=== PATIENT | female | born 1940 | race Caucasian/White ===

== ENCOUNTER 2020-07-12 05:51 | Inpatient (IN) | payer OTHER ==
[~2020-07-12 05:51] MED LIST: ATENOLOL PO; ATENOLOL100 MG PO; BENAZEPRIL HCL20 MG PO; CLONIDINE 0.2M0.2 MG PO; ELIQUIS2.5 MG PO; LASIX40 MG PO; MAG-OXIDE 400M400 MG PO; NORVASC5 MG PO; OXYCODONE HCL10 MG PO; OXYCODONE-ACET1 EACH PO; PERCOCET 10-321 EACH PO; POTASSIUM CHLO20 ME2 PO; PREDNISONE 20MG20 MG PO; SYNTHROID100 MCG PO; TRAZODONE 50MG50 MG PO; VOLTAREN100 GM TOP; ZOLOFT100 MG PO
[2020-07-12 06:15] LABS: BASOPHIL 0.1 % (0-2); EOSINOPHIL 0.3 % (0-7); HCT 34.1 % (37.0-47.0); HGB 10.4 g/dl (12.5-16.0); LYMPHOCYTE 4.5 % (15-48); MCH 29.6 pg (25.0-31.0); MCHC 30.5 g/dL (32.0-36.0); MCV 97.2 fL (78.0-100.0); MONOCYTE 8.1 % (0-12); MPV 10.6 fL (6.0-9.5); NEUTROPHIL 86.4 % (41-80); NRBC 0; PLT 405 K/uL (150-400); RBC 3.51 M/uL (4.20-5.40); RDW 16.6 % (11.5-14.0); WBC 15.4 K/uL (4.0-10.5)
[2020-07-12 06:37] LABS: LACTIC ACID 1.5 mmol/L (0.4-1.9)
[2020-07-12 06:45] LABS: ALBUMIN 3.6 g/dL (3.4-5.0); BILIRUBIN - TOTAL 1.1 mg/dL (0.2-1.0); BUN/CREAT RATIO (CALC) 18.3 RATIO; CREATININE 0.6 mg/dL (0.51-0.95); GLOBULIN (CALCULATION) 4.9 g/dL; POTASSIUM 3.6 mmol/L (3.5-5.1); PRO-BNP 3030 pg/mL (<450); TOTAL PROTEIN 8.5 g/dL (6.4-8.2)
[2020-07-12 07:31] LABS: CORONAVIRUS 2019 SARS-COV-2 NEGATIVE (NEGATIVE); INFLUENZA A NAA NEGATIVE (NEGATIVE)
[2020-07-12 07:53] LABS: BILIRUBIN NEGATIVE (NEGATIVE); BLOOD NEGATIVE Ery/uL (NEGATIVE); CLARITY CLEAR (CLEAR); COLOR YELLOW (YELLOW); GLUCOSE (U) NORMAL (NORMAL); LEUKOCYTES NEGATIVE Leu/uL (NEGATIVE); NITRITE NEGATIVE (NEGATIVE); PROTEIN 1+ mg/dL (NEGATIVE); SPECIFIC GRAVITY 1.015 (1.001-1.030); UROBILINOGEN 0.2 mg/dL (0.2-1.0)
[2020-07-12 08:06] LABS: SQUAMOUS EPITHELIAL CELLS RARE; URINARY RBC RARE
[2020-07-12] MEDS ORDERED: LASIX40 MG PO (10:20)
[2020-07-12] MEDS ORDERED: DULCOLAX PO (10:21)
[2020-07-12] MEDS ORDERED: SINGULAIR10 MG PO (10:21)
[2020-07-12] MEDS ORDERED: MUCINEX DM ER1 EAC1 PO (10:21)
[2020-07-12] MEDS ORDERED: BENADRYL25 M1 PO (10:21)
[2020-07-13 06:03] LABS: BASOPHIL 0.1 % (0-2); EOSINOPHIL 0 % (0-7); HCT 31.9 % (37.0-47.0); HGB 9.8 g/dl (12.5-16.0); LYMPHOCYTE 12.1 % (15-48); MCH 29.3 pg (25.0-31.0); MCHC 30.7 g/dL (32.0-36.0); MCV 95.5 fL (78.0-100.0); MONOCYTE 5.4 % (0-12); MPV 10.6 fL (6.0-9.5); NEUTROPHIL 81.8 % (41-80); NRBC 0; PLT 338 K/uL (150-400); RBC 3.34 M/uL (4.20-5.40); RDW 16.8 % (11.5-14.0); WBC 10.8 K/uL (4.0-10.5)
[2020-07-13 06:34] LABS: BUN/CREAT RATIO (CALC) 22.2 RATIO; CREATININE 0.63 mg/dL (0.51-0.95); POTASSIUM 3.4 mmol/L (3.5-5.1)
[2020-07-14 06:17] LABS: BASOPHIL 0.3 % (0-2); EOSINOPHIL 0.8 % (0-7); HCT 35.1 % (37.0-47.0); HGB 10.8 g/dl (12.5-16.0); LYMPHOCYTE 16.9 % (15-48); MCH 29.4 pg (25.0-31.0); MCHC 30.8 g/dL (32.0-36.0); MCV 95.6 fL (78.0-100.0); MONOCYTE 9.6 % (0-12); MPV 10.6 fL (6.0-9.5); NEUTROPHIL 71.9 % (41-80); NRBC 0; PLT 414 K/uL (150-400); RBC 3.67 M/uL (4.20-5.40); RDW 16.7 % (11.5-14.0); WBC 10.9 K/uL (4.0-10.5)
[2020-07-14 06:48] LABS: BUN/CREAT RATIO (CALC) 24.6 RATIO; CREATININE 0.69 mg/dL (0.51-0.95); MAGNESIUM 1.6 mg/dL (1.8-2.4); PHOSPHORUS 3.3 mg/dL (2.6-4.7); POTASSIUM 2.7 mmol/L (3.5-5.1)
--- NOTE | 2020-07-14 15:59 | NUR ---
07/14/20 Ms. Vergara lives with her daughter, Alma Vergara. She has home 02,rw, and 3in1. Ms. Vergara decline services.
[2020-07-15 05:52] LABS: BASOPHIL 0.5 % (0-2); EOSINOPHIL 2.2 % (0-7); HGB 12.3 g/dl (12.5-16.0); MCH 29.6 pg (25.0-31.0); MCHC 30.8 g/dL (32.0-36.0); MCV 96.4 fL (78.0-100.0); MONOCYTE 10.5 % (0-12); MPV 10.8 fL (6.0-9.5); NEUTROPHIL 54.3 % (41-80); NRBC 0; PLT 420 K/uL (150-400); RBC 4.15 M/uL (4.20-5.40); RDW 16.4 % (11.5-14.0); WBC 7.7 K/uL (4.0-10.5)
[2020-07-15 06:25] LABS: BUN/CREAT RATIO (CALC) 27.3 RATIO; CREATININE 0.88 mg/dL (0.51-0.95); MAGNESIUM 2.7 mg/dL (1.8-2.4); POTASSIUM 3.4 mmol/L (3.5-5.1)
--- NOTE | 2020-07-15 09:25 | NUR ---
ORTHOSTATIC VITAL SIGNS RIGHT ARM LAYING 117/75 HR 80 O2 92% RR 19 SITTING 109/66 HR 80 O2 92% RR 19 STANDING 122/60 HR 52 O2 91% RR 19
[2020-07-15] MEDS ORDERED: TORSEMIDE20 MG PO (11:59)
[2020-07-15] MEDS ORDERED: K-DUR20 MEQ PO (11:59)
--- NOTE | 2020-07-15 12:19 | NUR ---
07/15/20 Ms. Vergara requested humidified ait to her current 02. A referral was made to [facility] per order. [facility] currently provides . - Report given to CRISTOBAL Das RN.
[2020-07-16] MEDS ORDERED: OXYCODONE-ACET1 EACH PO (18:15)
[2020-09-09] MEDS ORDERED: OXYCODONE-ACET1 EACH PO (11:28)
[2020-11-10] MEDS ORDERED: OXYCODONE-ACET1 EACH PO (12:20)
[2021-01-04] MEDS ORDERED: OXYCODONE-ACET1 EACH PO (17:08)
== END 2020-07-15 13:55 | disposition home or self-care (01) | DRG 291 ==
LOC: FER 05:51 → FTCU 07:42
PROVIDERS: Emergency Medicine Emergency Medical Services; Internal Medicine; Nurse Practitioner Family; ADMIT Hospitalist
DX: I11.0 Hypertensive heart disease with heart failure (principal); J96.21 Acute and chronic respiratory failure with hypoxia; I48.20 Chronic atrial fibrillation, unspecified; I50.33 Acute on chronic diastolic (congestive) heart failure; I27.20 Pulmonary hypertension, unspecified; Z20.822 Contact with and (suspected) exposure to COVID-19; E03.9 Hypothyroidism, unspecified; J44.9 Chronic obstructive pulmonary disease, unspecified; F41.9 Anxiety disorder, unspecified; M79.7 Fibromyalgia; G89.29 Other chronic pain; K59.00 Constipation, unspecified; Z96.651 Presence of right artificial knee joint; Z79.01 Long term (current) use of anticoagulants; Z90.710 Acquired absence of both cervix and uterus; Z98.890 Other specified postprocedural states; Z98.51 Tubal ligation status
CPT/HCPCS: 36415; 36600; 71045; 80048; 80053; 81001; 82728; 82803; 83605; 83615; 83735; 83880; 84100; 84145; 84484; 85025; 85379; 86140; 87040; 87088; 93005; 94640; 94664; 97110; 97162; 97165; 97535; J1940; J2930; J3475; U0002

== ENCOUNTER 2021-06-12 11:58 | Inpatient (IN) | payer OTHER ==
[~2021-06-12] VITALS: Ht 152.4 cm; Wt 74.6 kg
[~2021-06-12 11:58] MED LIST changes: +BENADRYL25 M1 PO; +DULCOLAX PO; +K-DUR20 MEQ PO; +MUCINEX DM ER1 EAC1 PO; +SINGULAIR10 MG PO; +TORSEMIDE20 MG PO
[2021-06-12 12:52] LABS: BILIRUBIN NEGATIVE (NEGATIVE); BLOOD NEGATIVE Ery/uL (NEGATIVE); CLARITY CLEAR (CLEAR); COLOR YELLOW (YELLOW); GLUCOSE (U) NORMAL (NORMAL); LEUKOCYTES NEGATIVE Leu/uL (NEGATIVE); NITRITE NEGATIVE (NEGATIVE); PROTEIN NEGATIVE (NEGATIVE); SPECIFIC GRAVITY <=1.005 (1.001-1.030); UROBILINOGEN 0.2 mg/dL (0.2-1.0); pH 6.5 (5.0-9.0)
[2021-06-12 13:12] LABS: BASOPHIL 0.4 % (0-2); EOSINOPHIL 0.7 % (0-7); HCT 30.7 % (37.0-47.0); HGB 9.8 g/dl (12.5-16.0); LYMPHOCYTE 14.3 % (15-48); MCH 29.1 pg (25.0-31.0); MCHC 31.9 g/dL (32.0-36.0); MCV 91.1 fL (78.0-100.0); MPV 10.8 fL (6.0-9.5); NEUTROPHIL 76.7 % (41-80); NRBC 0; PLT 425 K/uL (150-400); RBC 3.37 M/uL (4.20-5.40); RDW 14.8 % (11.5-14.0); WBC 10.2 K/uL (4.0-10.5)
[2021-06-12 13:31] LABS: CORONAVIRUS 2019 SARS-COV-2 NEGATIVE (NEGATIVE); INFLUENZA A NAA NEGATIVE (NEGATIVE)
[2021-06-12 14:23] LABS: ALBUMIN 3.4 g/dL (3.4-5.0); BILIRUBIN - TOTAL 1.8 mg/dL (0.2-1.0); BUN/CREAT RATIO (CALC) 27.6 RATIO; CREATININE 0.98 mg/dL (0.51-0.95); GLOBULIN (CALCULATION) 4.9 g/dL; TOTAL PROTEIN 8.3 g/dL (6.4-8.2)
[2021-06-12] MEDS ORDERED: LASIX40 MG PO (18:11)
[2021-06-12] MEDS ORDERED: PERCOCET 10-321 EACH PO (18:12)
[2021-06-12] MEDS ORDERED: ELIQUIS2.5 MG PO (18:16)
[2021-06-12] MEDS ORDERED: DEMADEX20 MG PO (18:18)
[2021-06-12] MEDS ORDERED: BENAZEPRIL HCL20 MG PO (18:19)
[2021-06-12] MEDS ORDERED: KLOR-CON M2020 MEQ PO ×2 (18:21→18:22)
[2021-06-12] MEDS ORDERED: TRAZODONE 50MG50 MG PO (18:23)
[2021-06-13 06:02] LABS: BASOPHIL 0.3 % (0-2); EOSINOPHIL 0.8 % (0-7); HCT 30.5 % (37.0-47.0); HGB 9.5 g/dl (12.5-16.0); LYMPHOCYTE 19.3 % (15-48); MCH 28.7 pg (25.0-31.0); MCHC 31.1 g/dL (32.0-36.0); MCV 92.1 fL (78.0-100.0); MONOCYTE 8.9 % (0-12); MPV 10.7 fL (6.0-9.5); NRBC 0; PLT 418 K/uL (150-400); RBC 3.31 M/uL (4.20-5.40); RDW 14.9 % (11.5-14.0)
[2021-06-13 06:33] LABS: BUN/CREAT RATIO (CALC) 21.7 RATIO; CREATININE 0.83 mg/dL (0.51-0.95); POTASSIUM 3.4 mmol/L (3.5-5.1)
[2021-06-14 06:31] LABS: BASOPHIL 0.5 % (0-2); HCT 32.7 % (37.0-47.0); LYMPHOCYTE 26.8 % (15-48); MCH 28.7 pg (25.0-31.0); MCHC 30.6 g/dL (32.0-36.0); MCV 93.7 fL (78.0-100.0); MONOCYTE 8.5 % (0-12); MPV 10.7 fL (6.0-9.5); NEUTROPHIL 60.2 % (41-80); NRBC 0.3; PLT 467 K/uL (150-400); RBC 3.49 M/uL (4.20-5.40); RDW 15.5 % (11.5-14.0); WBC 7.9 K/uL (4.0-10.5)
[2021-06-14 06:43] LABS: BUN/CREAT RATIO (CALC) 17.9 RATIO; CREATININE 0.84 mg/dL (0.51-0.95); POTASSIUM 3.9 mmol/L (3.5-5.1)
[2021-06-14] MEDS ORDERED: LOPRESSOR25 MG PO (13:52)
== END 2021-06-14 14:54 | disposition home or self-care (01) | DRG 291 ==
LOC: FER 11:58 → FMS 16:52
PROVIDERS: Internal Medicine; ADMIT Internal Medicine
DX: I11.0 Hypertensive heart disease with heart failure (principal); I50.33 Acute on chronic diastolic (congestive) heart failure; J96.10 Chronic respiratory failure, unspecified whether with hypoxia or hypercapnia; E87.6 Hypokalemia; J44.9 Chronic obstructive pulmonary disease, unspecified; Z20.822 Contact with and (suspected) exposure to COVID-19; I48.0 Paroxysmal atrial fibrillation; R94.31 Abnormal electrocardiogram [ECG] [EKG]; D64.9 Anemia, unspecified; I27.20 Pulmonary hypertension, unspecified; E03.9 Hypothyroidism, unspecified; G89.29 Other chronic pain; M54.9 Dorsalgia, unspecified; M79.7 Fibromyalgia; F41.9 Anxiety disorder, unspecified; Z96.651 Presence of right artificial knee joint; Z86.711 Personal history of pulmonary embolism; Z99.81 Dependence on supplemental oxygen; Z98.51 Tubal ligation status; Z82.49 Family history of ischemic heart disease and other diseases of the circulatory system; Z79.01 Long term (current) use of anticoagulants; Z79.899 Other long term (current) drug therapy; Z79.891 Long term (current) use of opiate analgesic; Z79.890 Hormone replacement therapy
CPT/HCPCS: 36415; 36600; 71045; 71046; 80048; 80053; 81003; 82803; 83605; 83880; 84145; 84484; 85025; 85379; 87040; 93005; J1940; U0002